=== PATIENT | male | born 1970 | race Two or more races ===

== ENCOUNTER 2021-08-10 10:30 | Inpatient (IN) | payer OTHER ==
[~2021-08-10] VITALS: Ht 167.6 cm; Wt 72.6 kg
[2021-08-10] MEDS ORDERED: SYNTHROID75 MCG PO (11:22)
[2021-08-22] MEDS ORDERED: PROTONIX40 MG PO (09:10)
== END 2021-08-22 10:06 | disposition home or self-care (01) | DRG 330 ==
LOC: O/R 08-17 05:45 → SURH 08-17 05:45
PROVIDERS: ADMIT Surgery; ATTEND Surgery
PROC: 0DTN4ZZ Resection of Sigmoid Colon, Percutaneous Endoscopic Approach (ICD-10-PCS; 2021-08-17)
PROC: 3E0F7SF Introduction of Other Gas into Respiratory Tract, Via Natural or Artificial Opening (ICD-10-PCS; 2021-08-17)
PROC: 0DTP4ZZ Resection of Rectum, Percutaneous Endoscopic Approach (ICD-10-PCS; principal; 2021-08-17 09:00)
PROC: 0DJD8ZZ Inspection of Lower Intestinal Tract, Via Natural or Artificial Opening Endoscopic (ICD-10-PCS; 2021-08-18)
PROC: 0DJ08ZZ Inspection of Upper Intestinal Tract, Via Natural or Artificial Opening Endoscopic (ICD-10-PCS; 2021-08-18)
PROC: 02H633Z Insertion of Infusion Device into Right Atrium, Percutaneous Approach (ICD-10-PCS; 2021-08-19)
PROC: 30233N1 Transfusion of Nonautologous Red Blood Cells into Peripheral Vein, Percutaneous Approach (ICD-10-PCS; 2021-08-20)
DX: K57.20 Diverticulitis of large intestine with perforation and abscess without bleeding (principal); K91.840 Postprocedural hemorrhage of a digestive system organ or structure following a digestive system procedure; D62 Acute posthemorrhagic anemia; K62.89 Other specified diseases of anus and rectum; K64.1 Second degree hemorrhoids; K64.5 Perianal venous thrombosis; Y83.8 Other surgical procedures as the cause of abnormal reaction of the patient, or of later complication, without mention of misadventure at the time of the procedure; Y92.230 Patient room in hospital as the place of occurrence of the external cause

== ENCOUNTER 2025-03-18 07:24 | Outpatient (CLI) | payer OTHER ==
[~2025-03-18 07:24] MED LIST: PROTONIX40 MG PO; SYNTHROID75 MCG PO
== END 2025-03-18 07:31 | disposition home or self-care (01) ==
LOC: RAD 07:24
DX: M65.851 Other synovitis and tenosynovitis, right thigh (principal); M65.811 Other synovitis and tenosynovitis, right shoulder; M65.821 Other synovitis and tenosynovitis, right upper arm; M54.17 Radiculopathy, lumbosacral region; M60.89 Other myositis, multiple sites; M65.852 Other synovitis and tenosynovitis, left thigh

== ENCOUNTER 2025-05-25 07:18 | Outpatient (CLI) | payer OTHER | END 2025-05-25 07:20 | disposition home or self-care (01) | LOC: MRI 07:18 | DX: M76.821 Posterior tibial tendinitis, right leg (principal); M79.662 Pain in left lower leg; M62.552 Muscle wasting and atrophy, not elsewhere classified, left thigh; M62.830 Muscle spasm of back | CPT/HCPCS: 73718 ==